=== PATIENT | male | born 1990 | race Caucasian/White ===

== ENCOUNTER 2021-05-12 17:39 | Emergency (ER) | payer OTHER ==
[2021-05-12 18:21] LABS: BILIRUBIN NEGATIVE (NEGATIVE); BLOOD NEGATIVE Ery/uL (NEGATIVE); CLARITY CLEAR (CLEAR); COLOR YELLOW (YELLOW); GLUCOSE (U) NORMAL (NORMAL); LEUKOCYTES NEGATIVE Leu/uL (NEGATIVE); NITRITE NEGATIVE (NEGATIVE); PROTEIN NEGATIVE (NEGATIVE); SPECIFIC GRAVITY 1.025 (1.001-1.030); UROBILINOGEN 0.2 mg/dL (0.2-1.0)
[2021-05-12 18:22] LABS: BASOPHIL 0.2 % (0-2); EOSINOPHIL 0.1 % (0-5); HCT 47.6 % (42.0-52.0); HGB 17.1 g/dl (13.2-18.0); LYMPHOCYTE 3.3 % (15-48); MCHC 35.9 g/dL (32.0-36.0); MCV 91.9 fL (78.0-100.0); MONOCYTE 5.7 % (0-12); MPV 9.8 fL (6.0-9.5); NEUTROPHIL 90.2 % (41-80); NRBC 0; PLT 196 K/uL (150-400); RBC 5.18 M/uL (4.70-6.00); RDW 12.3 % (11.5-14.0)
[2021-05-12 18:51] LABS: BUN/CREAT RATIO (CALC) 20.9 RATIO; CREATININE 0.91 mg/dL (0.67-1.17); POTASSIUM 4.3 mmol/L (3.5-5.1)
[2021-05-12 18:58] LABS: CORONAVIRUS 2019 SARS-COV-2 NEGATIVE (NEGATIVE); INFLUENZA A NAA NEGATIVE (NEGATIVE)
[2021-05-12] MEDS ORDERED: ONDANSETRON ODT4 MG PO (19:31)
== END 2021-05-12 19:48 | disposition home or self-care (01) ==
LOC: FER 17:39 → EDBD 17:39 → FER 19:48
PROVIDERS: Nurse Practitioner Family
DX: B34.9 Viral infection, unspecified (principal); Z20.822 Contact with and (suspected) exposure to COVID-19
CPT/HCPCS: 36415; 80048; 81003; 85025; 99284; U0002